=== PATIENT | female | born 2005 | race Caucasian/White ===

== ENCOUNTER 2023-02-11 15:57 | Emergency (ER) | payer SELFPAY ==
[2023-02-11 17:21] LABS: Pregnancy Test - Urine (BHCG) Negative (Negative)
[2023-02-11 17:22] LABS: Pregu Control Background? CLEAR/WHITE (CLR/WHITE); Pregu Control Bar Appear? YES (CONTROL BAR); Specific Gravity 1.025 (1.002-1.036)
== END 2023-02-11 17:52 | disposition home or self-care (01) ==
LOC: CSHERS 15:57
DX: S93.402A Sprain of unspecified ligament of left ankle, initial encounter (principal); X50.1XXA Overexertion from prolonged static or awkward postures, initial encounter; Y93.61 Activity, american tackle football
CPT/HCPCS: 81025